=== PATIENT | female | born 1995 | race Caucasian/White ===

== ENCOUNTER 2021-12-27 17:27 | Emergency (ER) | payer SELFPAY ==
[2021-12-27 19:48] VITALS: BP 147/101; PULSE 79
== END 2021-12-27 19:48 | disposition home or self-care (01) ==
LOC: MW.ED 17:27
DX: S62.356A Nondisplaced fracture of shaft of fifth metacarpal bone, right hand, initial encounter for closed fracture (principal); W22.8XXA Striking against or struck by other objects, initial encounter
CPT/HCPCS: 29125; 73130-26-RT; 73130-RT; 99283

== ENCOUNTER 2022-01-01 08:01 | Day surgery (SDC) | payer SELFPAY ==
[~2022-01-01 08:01] MED LIST: Albuterol 0.083% 2.5 MG/3 ML Neb Soln NEB PRN; HYDROmorphone 1 MG/ML Syringe IVPUSH PRN; Lactated Ringers 1,000 ML IV SCH; Metoclopramide 10 MG/2 ML SDV IVPUSH PRN; Morphine 2 MG/ML SYRINGE IVPUSH PRN; Naloxone 0.4 MG/ML SDV IVPUSH PRN; Ondansetron 4 MG/2 ML SDV IVPUSH PRN; ceFAZolin 2 GM in Premix Bag 1 BAG IV SCH; fentaNYL 50 MCG/ML SDV IVPUSH PRN
[2022-01-01] MEDS ORDERED: Propofol 200 MG/20 ML SDV ONE (08:31)
[2022-01-01] MEDS ORDERED: fentaNYL 100 MCG/2 ML SDV ONE ×3 (08:31→09:38)
[2022-01-01] MEDS ORDERED: Bupivacaine 0.25% 30 ML SDV ONE (08:47)
[2022-01-01] MEDS ORDERED: Bupivacaine 0.5% 30 ML SDV ONE (08:56)
[2022-01-01] MEDS ORDERED: ceFAZolin 2 GM Vial ONE ×2 (09:32→09:35)
[2022-01-01] MEDS ORDERED: Water For Injection, Sterile 20 ML ONE (09:36)
[2022-01-01] MEDS ORDERED: Glycopyrrolate 0.2 MG/ML SDV ONE (09:47)
[2022-01-01 11:22] VITALS: BP 123/84; PULSE 50
== END 2022-01-01 11:20 | disposition home or self-care (01) ==
LOC: MW.SDS 08:01
PROVIDERS: ATTEND Orthopaedic Surgery
DX: S62.326A Displaced fracture of shaft of fifth metacarpal bone, right hand, initial encounter for closed fracture (principal); K21.9 Gastro-esophageal reflux disease without esophagitis; F17.200 Nicotine dependence, unspecified, uncomplicated; E66.9 Obesity, unspecified; W22.8XXA Striking against or struck by other objects, initial encounter; Z68.42 Body mass index [BMI] 45.0-49.9, adult; Z90.49 Acquired absence of other specified parts of digestive tract; Z98.890 Other specified postprocedural states; Z79.899 Other long term (current) drug therapy
CPT/HCPCS: 26608; 76000; 81025; J0690; J2704; J3010; J3490; J7120; 01820; 64450; 76942; J0131